=== PATIENT | female | born 1970 | race Caucasian/White ===

== ENCOUNTER 2017-01-28 06:23 | Emergency (ER) | payer MEDICAID ==
[2017-01-28] MEDS ORDERED: KETOROLAC TROMETHAMINE 30 MG/ML VIAL IV ONE (06:50)
[2017-01-28] MEDS ORDERED: HYDROmorphone HCL 2 MG/ML VIAL IV ONE (06:50)
[2017-01-28] MEDS ORDERED: CYCLOBENZAPRINE HCL 10 MG TABLET PO ONE (06:50)
[2017-01-28] MEDS ORDERED: KETOROLAC TROMETHAMINE 30 MG/ML VIAL ONE (06:54)
[2017-01-28] MEDS ORDERED: CYCLOBENZAPRINE HCL 10 MG TABLET ONE (06:54)
[2017-01-28] MEDS ORDERED: HYDROmorphone HCL 1 MG/ML DISP.SYRIN ONE (06:54)
--- NOTE | 2017-01-28 07:00 | ERNOTE ---
Abdominal HPI - Narrative Date of Service: 01/28/17 - General Chief Complaint: Abdominal Pain Time Seen by Provider: 01/28/17 06:44 Source: patient Exam Limitations: clinical condition - very emotional and crying - Immun/Allergies/Home Medications Immunizatons: IMMUNIZATION HX Immunizations Up to Date Yes History of Influenza Vaccine No Hx Pneumococcal Vaccination No Allergies/Adverse Reactions: Allergies aspirin Adverse Reaction (Verified 01/28/17 06:36) Home Medications: HOME MEDICATIONS Mv,Calcium,Min/Iron/Folic/Vitk [Essential Woman Tablet] 1 each PO DAILY [Last Taken Unknown] - History of Present Illness Narrative: Patient was seen yesterday with diagnosis of left sided lumbar back strain. Rx for muscle relaxant and NSAID but did not fill prescription. This AM pain much worse. Three weeks ago strain her back when she was caught between two horses in the trailer. Was tolerable then unloaded 4 loads of hay and noted increased pain. Gradually improved then she did 3 more loads of hay. Pain returned and she saw her provider yesterday. This AM pain was left mid to lower back and radiated anterior bilaterally in a band-like distribution. No paresthesia or radiation down legs. Timing: getting worse Quality: severe Review of Systems - Review of Systems Constitutional: Present: no symptoms reported Respiratory: Present: no symptoms reported Cardiology: Present: no symptoms reported Gastrointestinal/Abdominal: Present: no symptoms reported Genitourinary: Present: no symptoms reported Musculoskeletal: Present: See HPI Skin: Present: no symptoms reported Neurological: Present: no symptoms reported - Patient's Past Medical History Patient History - Medical: No pertinent hx Patient History - Cardiac/Respiratory: No pertinent hx Patient History - Cancer: No Hx of Cancer Patient History - Surgical Procedures: T & A Patient History - Other: None LMP (females 10-50): now - Social History Living Situations: home Abuse History: No History of abuse Psych History: No pertinent hx Smoking Status: Current every day smoker Alcohol Use: occasionally Drug Use: none - Immunizations Immunizations Up to Date: Yes Hx Pneumococcal Vaccination: No History of Influenza Vaccine: No Physical Exam - Physical Exam General Appearance: Present: wd/wn, alert, severe distress, anxious Eye Exam: Normal inspection: bilateral Neck: Present: normal inspection, nontender Respiratory: Present: no respiratory distress Cardiovascular/Chest: Present: regular rate, rhythm Gastrointestinal/Abdominal: Present: nontender, soft, guarding Back Exam: Present: normal inspection, muscle spasm - left paraspinal lumbar with tenderness Neurological Exam: Present: alert, oriented, motor weakness - lower extremities due to pain DTR: N=norm/NB=norm/brisk/A=abs/DD=dull/dimin/HC=hyperactive: Knee (R): Normal, Knee (L): Normal Skin Exam: Present: normal color, warm/dry ED Progress - Results and Orders Patient's Lab Results:: I have reviewed the patient's lab results. - Vital Signs Patient's Vital Signs:: I have reviewed the patient's vital signs. Vital Signs: Vital Signs 01/28/17 06:26 Temperature 38.2 C H Pulse Rate 115 H Respiratory 20 Rate Blood Pressure 90/69 O2 Sat by Pulse 94 Oximetry - Progress/Reassessment Chief Complaint: Abdominal Pain Progress:: Improved Progress Note-Subjective: 01/28/17 07:57 Back and abdominal radiation much improved. Plan - Plan Plan: Home Take meds previously prescribed No lifting or straining until cleared. Departure - Departure Clinical Impression: Lumbar back sprain Condition: Fair Instructions: Low Back Sprain With Rehab-SportsMed Additional Instructions: Take previously prescribed meds as directed No lifting or straining Follow up with PCP Referrals: Rozina Guallpa MD [Primary Care Provider] -
[2017-01-28 07:28] LABS: Hematocrit 38.8 % (37.0-47.0); Hemoglobin 13.2 gm/dL (12.5-16.0); Mean Cell Volume 88.8 fl (78-100); Mean Corpuscular Hemoglobin 30.2 pg (27-31); Mean Platelet Volume 10.3 fl (6.0-9.5); Neutrophil # 6.8 K/mm3 (1.3-6.0); Neutrophil % 68.7 % (42-75.0); Platelet Count 177 K/mm3 (150-450); Red Blood Count 4.37 M/mm3 (4.2-5.4); Red Cell Distribution Width 12.8 % (11.5-14.0); White Blood Count 9.9 K/mm3 (4.0-10.5)
[2017-01-28 07:38] LABS: Albumin * 3.1 gm/dl (3.4-5.0); Anion Gap 11.4 mmol/L (6.8-13.8); BUN/Creatinine Ratio 9.4 (9.0-21.6); Bilirubin, Total 0.5 mg/dL (0.0-1.1); Ca. Corrected For Albumin 9.7 mg/dL (8.4-10.2); Calcium * 9.3 mg/dL (7.9-10.9); Carbon Dioxide 26.8 mmol/L (24-32.6); Potassium 3.2 mmol/L (3.4-4.6); Total Protein 7.8 gm/dL (6.2-8.2)
[2017-01-28 07:45] VITALS: BP 96/55
[2017-01-28 07:49] LABS: CRP 29.1 mg/dL (0.0-0.9)
== END 2017-01-28 08:03 | disposition home or self-care (01) ==
LOC: ER 06:23
DX: S33.5XXA Sprain of ligaments of lumbar spine, initial encounter (principal); W23.0XXA Caught, crushed, jammed, or pinched between moving objects, initial encounter